=== PATIENT | female | born 1950 | race Two or more races ===

== ENCOUNTER 2023-05-06 19:28 | Inpatient (IN) | payer BC, OTHER ==
[~2023-05-06] VITALS: Ht 165.1 cm; Wt 69.0 kg
[2023-05-06] MEDS ORDERED: CLINDAMYCIN 600MG IV 50 ML IV ONE (23:45)
[2023-05-07] VITALS (8 sets, daily range): BP systolic 101–132; BP diastolic 48–69; PULSE 59–67; RESP 18–19; TEMP 97.8–98.8; O2SAT 93–98
[2023-05-07] MEDS ORDERED: ONDANSETRON HCL 4 MG/2 ML VIAL IV PRN (01:15)
[2023-05-07] MEDS ORDERED: DOCUSATE SOD 100 MG CAP PO PRN (01:15)
[2023-05-07] MEDS ORDERED: IBUPROFEN 600 MG TAB PO PRN (01:15)
[2023-05-07 01:53] LABS: Basophils # (auto) 0 10 ^3/uL (0-0.2); Basophils % (auto) 0.5 % (0.0-2.0); Eosinophils # (auto) 0.1 10 ^3/uL (0-0.8); Eosinophils % (auto) 2.2 % (0.0-7.0); Hematocrit 41.6 % (36.0-46.0); Hemoglobin 13.7 g/dL (12.2-16.2); Lymphocytes # (auto) 0.7 10 ^3/uL (0.4-5.4); Lymphocytes % (auto) 12.7 % (10.0-50.0); Mean Corpuscular Hemoglobin 30.4 pg (28.0-32.0); Mean Corpuscular Volume 92.2 fL (80.0-100.0); Monocytes # (auto) 0.5 10 ^3/uL (0-1.3); Monocytes % (auto) 9.2 % (0.0-12.0); Neutrophils % (auto) 75.4 % (37.0-80.0); Nucleated Red Blood Cells % 0.1 %; Red Blood Cells 4.51 10^6/uL (4.0-5.20); Red Cell Distribution Width 13.5 % (11.8-14.3); White Blood Cell 5.3 10^3/uL (4.4-10.8)
[2023-05-07] MEDS ORDERED: NITROGLYCERIN 0.4 MG SL TAB SL PRN (02:00)
[2023-05-07 02:03] LABS: Alanine Aminotransferase 29 U/L (7-40); Albumin 4.4 g/dL (3.2-4.8); Alkaline Phosphatase 78 U/L (46-116); Anion Gap 10 (5-15); Aspartate Aminotransferase 21 U/L (13-40); BUN/Creatinine Ratio 18.3 (10.0-20.0); Bilirubin, Total 0.4 mg/dL (0.2-1.0); Blood Urea Nitrogen 17 mg/dL (9-23); Calcium 9.1 mg/dL (8.7-10.4); Carbon Dioxide 21 mmol/L (20-30); Chloride 108 mmol/L (98-107); Glucose 86 mg/dL (74-106); Sodium 139 mmol/L (136-145); Total Protein 7.5 g/dL (5.7-8.2)
[2023-05-07] MEDS: SODIUM CHLORIDE 0.9% 1,000 ML IV SCH ×2 (03:50→06:41)
[2023-05-07] MEDS: LEVOTHYROXINE SODIUM 100 MCG TAB PO SCH (06:32)
[2023-05-07] MEDS: CLINDAMYCIN 600MG IV 50 ML IV SCH ×3 (06:32→22:27)
[2023-05-07] MEDS ORDERED: LEVO200I5 IV (07:35)
[2023-05-07] MEDS ORDERED: IBUP-1455 PO (07:35)
[2023-05-07] MEDS ORDERED: LEV100T PO (07:35)
[2023-05-07] MEDS: ASPirin 81 mg TAB PO SCH (09:14)
[2023-05-08 05:57] VITALS: BP 116/52; PULSE 62; RESP 18; TEMP 98.3; O2SAT 95
[2023-05-08] MEDS: CLINDAMYCIN 600MG IV 50 ML IV SCH ×3 (06:05→22:03)
[2023-05-08 06:25] LABS: Basophils # (auto) 0 10 ^3/uL (0-0.2); Basophils % (auto) 0.4 % (0.0-2.0); Eosinophils # (auto) 0.3 10 ^3/uL (0-0.8); Eosinophils % (auto) 6.2 % (0.0-7.0); Hematocrit 41.1 % (36.0-46.0); Hemoglobin 13.8 g/dL (12.2-16.2); Lymphocytes # (auto) 0.6 10 ^3/uL (0.4-5.4); Lymphocytes % (auto) 11.6 % (10.0-50.0); Mean Corpuscular Hemoglobin 30.8 pg (28.0-32.0); Mean Corpuscular Hgb Conc. 33.7 g/dL (32.0-36.0); Mean Corpuscular Volume 91.4 fL (80.0-100.0); Monocytes # (auto) 0.5 10 ^3/uL (0-1.3); Monocytes % (auto) 10.4 % (0.0-12.0); Neutrophils # (auto) 3.5 10 ^3/uL (1.6-8.6); Neutrophils % (auto) 71.4 % (37.0-80.0); Nucleated Red Blood Cells % 0.1 %; Red Cell Distribution Width 13.3 % (11.8-14.3); White Blood Cell 4.9 10^3/uL (4.4-10.8)
[2023-05-08] MEDS: LEVOTHYROXINE SODIUM 100 MCG TAB PO SCH (06:32)
[2023-05-08 06:47] LABS: Alanine Aminotransferase 26 U/L (7-40); Albumin 4.1 g/dL (3.2-4.8); Alkaline Phosphatase 70 U/L (46-116); Anion Gap 6 (5-15); Aspartate Aminotransferase 19 U/L (13-40); BUN/Creatinine Ratio 13.1 (10.0-20.0); Blood Urea Nitrogen 11 mg/dL (9-23); Carbon Dioxide 25 mmol/L (20-30); Chloride 106 mmol/L (98-107); Glucose 96 mg/dL (74-106); Potassium 4.2 mmol/L (3.5-5.1); Sodium 137 mmol/L (136-145); Total Protein 7.2 g/dL (5.7-8.2)
[2023-05-08 06:51] LABS: Bilirubin, Total 0.4 mg/dL (0.2-1.0)
[2023-05-08 08:00] VITALS: PULSE 68; RESP 18; O2SAT 98
[2023-05-08 09:00] VITALS: BP 120/62; PULSE 60; RESP 20; TEMP 97.5; O2SAT 95
[2023-05-08] MEDS: ASPirin 81 mg TAB PO SCH (09:01)
[2023-05-08 13:00] VITALS: BP 97/57; PULSE 60; RESP 14; TEMP 97.8; O2SAT 95
[2023-05-08 17:00] VITALS: BP 102/55; PULSE 65; RESP 18; TEMP 97.9; O2SAT 96
[2023-05-08 22:00] VITALS: BP 114/57; PULSE 71; RESP 20; TEMP 98.8; O2SAT 96
[2023-05-09 05:39] VITALS: BP 119/52; PULSE 60; RESP 18; TEMP 98.6; O2SAT 95
[2023-05-09] MEDS: CLINDAMYCIN 600MG IV 50 ML IV SCH ×3 (05:39→21:24)
[2023-05-09] MEDS: LEVOTHYROXINE SODIUM 100 MCG TAB PO SCH (05:40)
[2023-05-09 09:00] VITALS: BP 99/59; PULSE 59; RESP 18; TEMP 97.8; O2SAT 96
[2023-05-09] MEDS: ASPirin 81 mg TAB PO SCH (09:45)
[2023-05-09 13:00] VITALS: BP 110/54; PULSE 56; RESP 21; TEMP 98; O2SAT 96
[2023-05-09 16:44] VITALS: BP 122/77; PULSE 62; RESP 21; TEMP 98.2; O2SAT 94
[2023-05-09 20:00] VITALS: RESP 16
[2023-05-09 22:00] VITALS: BP 121/65; PULSE 70; RESP 18; TEMP 98.3; O2SAT 96
[2023-05-10 05:00] VITALS: BP 119/63; PULSE 62; RESP 18; TEMP 98.1; O2SAT 95
[2023-05-10] MEDS: CLINDAMYCIN 600MG IV 50 ML IV SCH ×2 (06:01→13:04)
[2023-05-10] MEDS: LEVOTHYROXINE SODIUM 100 MCG TAB PO SCH (06:02)
[2023-05-10 08:00] VITALS: BP 114/56; PULSE 60; RESP 17; TEMP 98.1; O2SAT 94
[2023-05-10 09:00] VITALS: BP 114/56; PULSE 60; RESP 17; O2SAT 94
[2023-05-10] MEDS: ASPirin 81 mg TAB PO SCH (09:46)
[2023-05-10] MEDS ORDERED: CLIN300C2 PO (10:57)
[2023-05-10 13:00] VITALS: BP 111/65; PULSE 65; RESP 17; TEMP 97.8; O2SAT 94
[2023-05-10 13:51] VITALS: BP 111/56; PULSE 65; RESP 17; TEMP 97.8; O2SAT 94
== END 2023-05-10 15:00 | disposition home or self-care (01) | DRG 600 ==
LOC: ER 19:28 → OVERFLOW 05-07 02:00 → EAST 05-07 06:00
PROVIDERS: ADMIT Nurse Practitioner Family; ATTEND Internal Medicine Geriatric Medicine
DX: N61.1 Abscess of the breast and nipple (principal); A18.4 Tuberculosis of skin and subcutaneous tissue; N61.0 Mastitis without abscess; E03.9 Hypothyroidism, unspecified; M06.9 Rheumatoid arthritis, unspecified; Z88.1 Allergy status to other antibiotic agents; Z88.5 Allergy status to narcotic agent; Z80.3 Family history of malignant neoplasm of breast
CPT/HCPCS: 36415; 76642; 80053; 84443; 85025; 87205; G0378; J3490

== ENCOUNTER 2023-05-29 10:36 | Emergency (ER) | payer OTHER ==
[~2023-05-29] VITALS: Ht 165.1 cm; Wt 70.5 kg
[~2023-05-29 10:36] MED LIST: CLIN300C2 PO; IBUP-1455 PO; LEV100T PO
[2023-05-29 12:28] LABS: Basophils # (auto) 0 10 ^3/uL (0-0.2); Basophils % (auto) 0.4 % (0.0-2.0); Eosinophils # (auto) 0.3 10 ^3/uL (0-0.8); Eosinophils % (auto) 5.6 % (0.0-7.0); Hematocrit 39.5 % (36.0-46.0); Lymphocytes # (auto) 0.7 10 ^3/uL (0.4-5.4); Lymphocytes % (auto) 12.9 % (10.0-50.0); Mean Corpuscular Hemoglobin 30.4 pg (28.0-32.0); Mean Corpuscular Hgb Conc. 32.9 g/dL (32.0-36.0); Mean Corpuscular Volume 92.3 fL (80.0-100.0); Monocytes # (auto) 0.5 10 ^3/uL (0-1.3); Monocytes % (auto) 9.1 % (0.0-12.0); Neutrophils # (auto) 4.1 10 ^3/uL (1.6-8.6); Nucleated Red Blood Cells % 0.1 %; Red Blood Cells 4.28 10^6/uL (4.0-5.20); Red Cell Distribution Width 13.4 % (11.8-14.3); White Blood Cell 5.7 10^3/uL (4.4-10.8)
[2023-05-29 12:44] LABS: Alanine Aminotransferase 41 U/L (7-40); Albumin 4.3 g/dL (3.2-4.8); Alkaline Phosphatase 103 U/L (46-116); Anion Gap 7 (5-15); Aspartate Aminotransferase 32 U/L (13-40); BUN/Creatinine Ratio 11.8 (10.0-20.0); Bilirubin, Total 0.5 mg/dL (0.2-1.0); Blood Urea Nitrogen 10 mg/dL (9-23); Calcium 9.4 mg/dL (8.7-10.4); Carbon Dioxide 20 mmol/L (20-30); Chloride 107 mmol/L (98-107); Glucose 89 mg/dL (74-106); Potassium 3.8 mmol/L (3.5-5.1); Sodium 134 mmol/L (136-145); Total Protein 7.9 g/dL (5.7-8.2)
[2023-05-29] MEDS ORDERED: cefTRIAXone 1GM/50ML D5W 50 ML IV ONE (17:15)
[2023-05-29] MEDS ORDERED: CEFD300C2 PO (18:06)
[2023-05-29 18:13] VITALS: BP 142/53; PULSE 73; RESP 16; TEMP 98.2; O2SAT 95
== END 2023-05-29 18:15 | disposition home or self-care (01) ==
LOC: ER 10:36
DX: N61.0 Mastitis without abscess (principal); N64.51 Induration of breast; J44.9 Chronic obstructive pulmonary disease, unspecified; E03.9 Hypothyroidism, unspecified; Z90.89 Acquired absence of other organs; Z79.1 Long term (current) use of non-steroidal anti-inflammatories (NSAID); Z79.2 Long term (current) use of antibiotics; Z79.899 Other long term (current) drug therapy; Z88.1 Allergy status to other antibiotic agents; Z88.5 Allergy status to narcotic agent
CPT/HCPCS: 36415; 80053; 84443; 85025; 96365; 99284; J0696

== ENCOUNTER 2024-10-08 18:51 | Emergency (ER) | payer OTHER ==
[~2024-10-08] VITALS: Ht 162.6 cm; Wt 76.3 kg
[~2024-10-08 18:51] MED LIST changes: +CEFD300C2 PO; -LEV100T PO; +LEVO-849 PO
[2024-10-08 19:06] VITALS: BP 125/67; PULSE 75; RESP 17; O2SAT 97
--- NOTE | 2024-10-08 19:50 | DVH ---
CLINICAL INDICATION: RIGHT KNEE PAIN TECHNIQUE: 3 radiographic views of the right knee were obtained. Comparison: None FINDINGS/IMPRESSION: There is no evidence of acute fracture or dislocation. The visualized joint space is well maintained. The alignment is anatomical. Chondrocalcinosis of the knee is noted. Small suprapatellar effusion.
[2024-10-08] MEDS ORDERED: ACET500T58 PO (22:14)
--- NOTE | 2024-10-08 22:14 | ED.PDOC ---
Musculoskeletal HPI Comments 74-year-old female presents to ER with complaints of right knee pain x3 days. Patient reports that she tripped while walking up one step three days ago and landed on her right knee onto tile and has since been experiencing right knee pain. Denies head injury/LOC. She rates her current pain a 9/10 to right knee without radiation. Reports that she has been using [id number] "topical ointments" on her knee without relief. Patient presents to ER ambulatory on arrival and is noted to be favoring left leg on ambulation. Denies numbness/tingling, skin changes, calf pain, hip pain or any further symptoms/complaints Chief Complaint: Lower Extremity Time Seen by MD: 19:13 Primary Care Provider: LADONNA RAUSCH Reviewed Notes: Nurses Notes, Medications, Allergies Allergies: Coded Allergies: Codeine (Verified Allergy, Unknown, 05/06/23) Levofloxacin (Verified Allergy, Unknown, 05/06/23) Vancomycin (Verified Allergy, Unknown, 05/06/23) Home Meds Active Scripts Acetaminophen (Acetaminophen) 500 Mg Tab, 500 MG PO Q4HPRN, #30 TAB 0 Refills Prov:SOHA HERNANDEZ 10/08/24 Cefdinir (Cefdinir) 300 Mg Cap, 1 CAP PO BID for 10 Days, #20 CAP Prov:JITENDRA CASTRO MD 05/29/23 Clindamycin Hcl (Cleocin) 300 Mg Cap, 300 MG PO Q8HR for 10 Days, #30 CAP 0 Refills Prov:BETTY MONTOYA MD 05/10/23 Reported Medications Ibuprofen Micronized (Ibuprofen) 800 Mg Tab, 800 MG PO DAILY, TAB 05/07/23 Levothyroxine Sodium (SYNTHROID TABLET) 100 Mcg Tb, 1 TAB PO DAILY, #30 TAB 5 Refills 05/07/23 Information Source: Patient Mode of Arrival: Ambulatory Past Medical History PAST MEDICAL HISTORY: Arthritis, COPD, Thyroid Surgical History: , Thyroidectomy Surgical History (Other): CERVICAL SPINAL SURGERY DIRECTOR OF PULMONARY UNIT History: No Pertinent DIRECTOR OF PULMONARY UNIT History Family History Family History: Unknown Social History Smoker: Non-Smoker Alcohol: Denies ETOH Use Drugs: Denies Drug Use Lives In: Home Constitutional: denies: chills, diaphoresis, fatigue, fever, malaise, sweats, weakness, others EENTM: denies: blurred vision, double vision, ear bleeding, ear discharge, ear drainage, ear pain, ear ringing, eye pain, eye redness, hearing loss, mouth pain, mouth swelling, nasal discharge, nose bleeding, nose congestion, nose pain, photophobia, tearing, throat pain, throat swelling, voice changes, others Respiratory: denies: cough, hemoptysis, orthopnea, SOB at rest, shortness of breath, SOB with excertion, stridor, wheezing, others Cardiovascular: denies: chest pain, dizzy spells, diaphoresis, Dyspnea on exertion, edema, irregular heart beat, left arm pain, lightheadedness, palpitations, PND, syncope, others Gastrointestinal: denies: abdomen distended, abdominal pain, blood streaked bowels, constipated, diarrhea, dysphagia, difficulty swallowing, hematemesis, melena, nausea, poor appetite, poor fluid intake, rectal bleeding, rectal pain, vomiting, others Genitourinary: denies: abnormal vagina bleeding, burning, dyspareunia, dysuria, flank pain, frequency, hematuria, incontinence, pain, , vagina discharge, urgency, others Neurological: denies: dizziness, fainting, headache, left sided numbness, left sided weakness, numbness, paresthesia, pre-existing deficit, right sided numbness, right sided weakness, seizure, speech problems, tingling, tremors, weakness, others Musculoskeletal: reports: others ( IN HPI) Integumetry: denies: bruises, change in color, change in hair/nails, dryness, laceration, lesions, lumps, rash, wounds, others Allergic/Immunocompromised: denies: Difficulty Healing, Frequent Infections, Hives, Itching, others Hematologic/Lymphatic: denies: anemia, blood clots, easy bleeding, easy bruising, swollen glands, others Endocrine: denies: excessive hunger, excessive sweating, excessive thirst, excessive urination, flushing, intolerance to cold, intolerance to heat, unexplained weight gain, unexplained weight loss, others Psychiatric: denies: anxiety, bipolar disorder, depression, hopeless, panic disorder, schizophrenia, sleepless, suicidal, others Physical Exam General Appearance: Mild Distress (DUE TO RIGHT KNEE PAIN) HEENT: PERRL/EOMI Neck: Full Range of Motion, Non-Tender, Normal Respiratory: Chest Non-Tender, Lungs Clear, No Accessory Muscle Use, No Respiratory Distress, Normal Breath Sounds Cardiovascular: No Murmur, No Gallop, Regular Rate/Rhythm Breast Exam: Deferred Gastrointestinal: NOT DONE Genitalia: Deferred Pelvic: Deferred Rectal: Deferred Extremities: No calf tenderness, Normal capillary refill, Normal range of motion Musculoskeletal : Extremity Location: Knee (TTP/MILD SWELLING NOTED TO RIGHT ANTERIOR KNEE. NO DEFORMITY/FURTHER SKIN CHANGES NOTED. PATIENT FAVORS LEFT LEG ON AMBUALATION DUE TO PAIN LOCALIZED TO RIGHT ANTERIOR KNEE) Neurologic: Alert, No Motor Deficits, No Sensory Deficits Cerebellar Function: Normal Reflexes: Normal Skin: Dry, Normal Color, Warm Peripheral Pulses: 2+ femoral (R), 2+ femoral (L), 2+ dorsalis pedis (R), 2+ dorsalis pedis (L) Lymphatic: No Adenopathy Was a procedure done? Was a procedure done?: No Sedation Sedation?: No Differential Diagnosis EXT Differential Diagnosis: Fracture, Dislocation, Neurovascular injury X-Ray, Labs, Meds, VS Vital Signs Date Time Temp Pulse Resp B/P (MAP) Pulse Ox O2 Delivery O2 Flow Rate FiO2 10/08/24 19:06 98.9 75 17 125/67 (86) 97 PATIENT: REENA SONICCT: [id number]: [id number] : 1950 LOC: ER ROOM / BED: / AGE / SEX: 74 / F ADM STATUS: REG ER SERVICE 13 ORDERING PHYSICIAN: SOHA HERNANDEZ PROCEDURE(s): RKN3 - R KNEE 3V XRAY REASON: RIGHT KNEE PAIN ORDER NUMBER(s): [id number], ACCESSION NUMBER(s): [id number] CLINICAL INDICATION: RIGHT KNEE PAIN TECHNIQUE: 3 radiographic views of the right knee were obtained. Comparison: None FINDINGS/IMPRESSION: There is no evidence of acute fracture or dislocation. The visualized joint space is well maintained. The alignment is anatomical. Chondrocalcinosis of the knee is noted. Small suprapatellar effusion. ATED BY: MALLORY SAVAGE DO DICTATED DATE/TIME: 10/08/241947 SIGNED BY: MALLORY SAVAGE DO SIGNED DATE/TIME: 10/08/241947 CC: RIGHT KNEE X-RAY REVIEWED RIGHT KNEE IMMOBILIZER APPLIED PATIENT NEUROVASCULARLY INTACT ADVISED ON REST/NO STRENUOUS ACTIVITY, ELEVATION AND ALTERNATE ICE ON/OFF NEEDED FOR PAIN/SWELLING ADVISED TO FOLLOW UP WITH PCP AND ORTHOPEDICS IN 1-2 DAYS PATIENT VERBALIZED UNDERSTANDING AND AGREEABLE WITH CURRENT PLAN OF CARE ADVISED TO RETURN TO ER IMMEDIATELY IF SYMPTOMS WORSEN Images Reviewed?: Images reviewed and evaluated by me Time of 1ST Reevaluation: 21:44 Reevaluation 1ST: N/A Patient Education/Counseling: Diagnosis, Treatment, Prognosis, Need For Follow Up Family Education/Counseling: No Family Present Departure 1 Departure Time of Disposition: 22:12 Impression: Primary Impression: Knee effusion, right Disposition: 01 HOME / SELF CARE / HOMELESS Condition: Stable e-Prescriptions Acetaminophen (Acetaminophen) 500 Mg Tab 500 MG PO Q4HPRN, #30 TAB 0 Refills Prov: SOHA HERNANDEZ 10/08/24 Discharged With: Friend Critical Care Note Critical Care Time?: No Stability Stability form required: No Heart Score Heart Score: Heart Score Response (Comments) Value History N/A 0 EKG N/A 0 Age N/A 0 Risk Factors N/A 0 Troponin N/A 0 Total 0 SOHA HERNANDEZ Oct 08, 2024 22:14
== END 2024-10-08 22:30 | disposition home or self-care (01) ==
LOC: ER 18:51
DX: M25.461 Effusion, right knee (principal); J44.9 Chronic obstructive pulmonary disease, unspecified; E03.9 Hypothyroidism, unspecified; Z88.6 Allergy status to analgesic agent; Z88.8 Allergy status to other drugs, medicaments and biological substances; Z98.890 Other specified postprocedural states; Z79.899 Other long term (current) drug therapy
CPT/HCPCS: 29505; 73562